=== PATIENT | female | born 1940 | race Caucasian/White ===

== ENCOUNTER 2018-11-28 11:58 | Emergency (ER) | payer BC, OTHER ==
--- NOTE | 2018-11-28 12:38 | UC ---
Lower Extremity/Ankle HPI - HPI Summary HPI Summary: 78 yo female presents accompanied by daughter with complaints of right leg pain. Pt tells me that for about a week she has been having pain radiating from her right lower back down her right leg. Also is having right calf pain with walking and reports that she feels tingling in her right foot at times. She did travel from [place] to [place] about 5 days ago, but symptoms began before travel. She has been taking tylenol for her discomfort with no change. Denies SOB, chest pain, saddles anesthesia, loss of bowel/bladder control, or dysuria. No personal or fam hx of DVT. - History of Current Complaint Stated Complaint: RIGHT LEG PAIN Time Seen by Provider: 11/28/18 12:37 Hx Obtained From: Patient, Family/Medical Device Sales Consultant Onset/Duration: Gradual Onset Severity Initially: Mild Severity Currently: Mild Pain Intensity: 3 Pain Scale Used: 0-10 Numeric - Allergies/Home Medications Allergies/Adverse Reactions: Allergies Allergy/AdvReac Type Severity Reaction Status Date / Time No Known Allergies Allergy Verified 11/28/18 12:57 Home Medications: Home Medications Acetaminophen [Mapap] 1,000 mg PO ONCE PRN 11/28/18 [History Confirmed 11/28/18] Aspirin 81 mg PO DAILY 11/28/18 [History Confirmed 11/28/18] Labetalol HCl 200 mg PO BID 11/28/18 [History Confirmed 11/28/18] Losartan TAB* [Cozaar TAB*] 1 tab PO DAILY 11/28/18 [History Confirmed 11/28/18] Omeprazole 20 mg PO DAILY 11/28/18 [History Confirmed 11/28/18] PMH/Surg Hx/FS Hx/Imm Hx Endocrine History: Dyslipidemia Cardiovascular History: Cardiac Disease, Hypertension, Myocardial Infarction - Surgical History Surgical History: Yes Surgery Procedure, Year, and Place: STENT PLACEMENT. LEFT LUNG REMOVAL - Family History Known Family History: Positive: Unknown - Social History Occupation: Retired Lives: With Family Alcohol Use: Occasionally Substance Use Type: None Smoking Status (MU): Never Smoked Tobacco Review of Systems All Other Systems Reviewed And Are Negative: Yes Constitutional: Positive: Negative Skin: Positive: Negative Respiratory: Positive: Negative Cardiovascular: Positive: Negative Neurovascular: Positive: Negative Musculoskeletal: Positive: Other: - Right leg pain Neurological: Positive: Negative Psychological: Positive: Negative Physical Exam - Summary Physical Exam Summary: GENERAL: NAD. WDWN. No pain distress. SKIN: No rashes, sores, lesions, or open wounds. NECK: Supple. FROM. Nontender. No lymphadenopathy. CHEST: CTAB. No r/r/w. No accessory muscle use. Breathing comfortably and in no distress. CV: RRR. Without m/r/g. Pulses intact DP and PT. Cap refill <2seconds MSK: TTP over RIGHT SI. Pain with flexion of spine. Weak Positive SLR on RIGHT for low back pain without radiation. Strength 5/5 B/L LEs including dorsiflexion and plantar flexion. FROM B/L LEs. No edema. Mild TTP RIGHT calf. Negative dominga sign. NEURO: Alert. Sensations intact B/L LEs L3-S1. Reflexes intact PSYCH: Age appropriate behavior. Triage Information Reviewed: Yes Vital Signs: Vital Signs: Temp Pulse Resp BP Pulse Ox 98.1 F 67 18 176/76 98 11/28/18 12:47 11/28/18 12:47 11/28/18 12:47 11/28/18 12:47 11/28/18 12:47 Vital Signs Reviewed: Yes Lower Extremity Course/Dx - Course Course Of Treatment: Suspect sciatica, but pt and daughter are most concerned about this being a blood clot - therefore will order for an U/S r/o DVT today. XR lumbar spine: IMPRESSION: 1. OSTEOPENIA. 2. DEGENERATIVE DISC DISEASE AND OSTEOARTHRITIS. 3. ATHEROSCLEROSIS. US right LE: IMPRESSION: NO EVIDENCE OF DEEP VENOUS THROMBOSIS IS IDENTIFIED. Discussed results with pt and daughter. Advised to rest and apply ice/heat to lower back. Rx for medrol pam and lidoderm patch for sciatica. Advised to f/u with PCP for a recheck - Differential Dx/Diagnosis Provider Diagnosis: Sciatica, Right calf pain Discharge - Sign-Out/Discharge Documenting (check all that apply): Patient Departure All imaging exams completed and their final reports reviewed: Yes - Discharge Plan Condition: Stable Disposition: HOME Prescriptions: Lidocaine PATCH 5%* [Lidoderm 5% Patch*] 1 patch TRANSDERM DAILY PRN #10 patch PRN Reason: Pain methylPREDNISolone [Medrol Dosepak 4 MG*] 0 mg PO .SEE PAM INSTRUCTION #1 pam Patient Education Materials: Sciatica (ED), Peripheral Artery Disease (ED) Referrals: No Primary Care Phys,NOPCP [Primary Care Provider] - Additional Instructions: If you develop a fever, shortness of breath, chest pain, new or worsening symptoms - please call your PCP or go to the ED immediately. Your blood pressure was high at todays visit. Please see your primary provider within 4 weeks for recheck and re-evaluation. 1) Rest and apply heat/ice to your lower back to reduce pain 2) Do not take Advil, Aleve, or ibuprofen with the steroid (medrol pack) as these medications may interact. - Billing Disposition and Condition Condition: STABLE Disposition: Home
[2018-11-28 12:59] VITALS: BP 176/76
== END 2018-11-28 14:28 | disposition home or self-care (01) ==
LOC: UCEAST 11:58
DX: M79.661 Pain in right lower leg (principal); M54.30 Sciatica, unspecified side; I25.10 Atherosclerotic heart disease of native coronary artery without angina pectoris; I10 Essential (primary) hypertension; I25.2 Old myocardial infarction; Z79.82 Long term (current) use of aspirin; Z79.899 Other long term (current) drug therapy; M85.80 Other specified disorders of bone density and structure, unspecified site; M51.36 Other intervertebral disc degeneration, lumbar region; M47.896 Other spondylosis, lumbar region; I70.0 Atherosclerosis of aorta
CPT/HCPCS: 72110; 99202; G0463